=== PATIENT | male | born 1985 | race Caucasian/White ===

== ENCOUNTER 2024-12-28 22:05 | Emergency (ER) | payer SELFPAY ==
[2024-12-28 22:12] VITALS: BP 144/80; PULSE 78; RESP 18; TEMP 36.5; O2SAT 96; BMI 32.1
== END 2024-12-29 02:01 | disposition left against medical advice (07) ==
PROVIDERS: Emergency Provider Emergency Medicine
DX: R22.9 Localized swelling, mass and lump, unspecified (principal); Z53.21 Procedure and treatment not carried out due to patient leaving prior to being seen by health care provider
CPT/HCPCS: 99281